=== PATIENT | female | born 1980 | race Two or more races ===

== ENCOUNTER 2016-10-06 07:07 | Emergency (ER) | payer OTHER ==
[~2016-10-06] VITALS: Ht 160 cm; Wt 99.4 kg
[~2016-10-06 07:07] MED LIST: BACTRIM,SEPT1 TABLET PO; LEVOFLOXACIN500 MG PO; MIRENA52 MG IY; PREDNISONE20 MG PO; VENTOLIN HFA18 GM IH
[2016-10-06 07:54] LABS: HEMATOCRIT 34.2 % (36.0-46.0); MCH 28.6 PG (29.0-34.0); MCHC 34.5 G/DL (30.0-36.0); PLATELET COUNT 354 K/uL (156-360); RBC DIS.WIDTH-SD 36.7 % (39-53); RED BLOOD COUNT 4.12 M/uL (3.80-5.20); WHITE BLOOD COUNT 10.7 K/uL (4.1-10.2)
[2016-10-06 08:05] LABS: CHLORIDE 108 mEq/L (99-109); POTASSIUM 3.4 mEq/L (3.7-5.4); SODIUM 137 mEq/L (136-147)
[2016-10-06 08:07] LABS: GLUCOSE 85 mg/dL (70-99)
[2016-10-06 08:08] LABS: ANION GAP 8 MEQ/L (2-14)
[2016-10-06 08:09] LABS: TOTAL BILIRUBIN 0.2 mg/dL (0.0-1.0)
[2016-10-06 08:11] LABS: ALKALINE PHOSPHATASE 60 IU/L (3-129); GFR ESTIMATE (CALCULATED) > 59 mL/min/
[2016-10-06 08:12] LABS: UREA NITROGEN (BUN) 8 mg/dL (9-23)
[2016-10-06 10:32] LABS: ADD MIUA? YES; BILIRUBIN NEGATIVE; BLOOD MODERATE; COLOR YELLOW ((YELLOW)); GLUCOSE (STRIP) NEGATIVE; KETONES NEGATIVE; LEUKOCYTES NEGATIVE; NITRITE NEGATIVE; PROTEIN (STRIP) NEGATIVE; SPECIFIC GRAVITY 1.021 (1.000-1.030); UROBILINOGEN 0.2 MG/DL (0.2-1.0)
[2016-10-06 10:36] LABS: BACTERIA RARE /HPF; EPITHELIAL CELLS RARE /HPF; GRANULAR CASTS 0-5 /LPF; MUCUS TRACE /LPF; RED BLOOD CELLS TNTC /HPF (0-5); WHITE BLOOD CELLS 0-5 /HPF (0-5)
[2016-10-06 11:25] VITALS: BP 144/89
== END 2016-10-06 11:29 | disposition home or self-care (01) ==
LOC: EME 07:07
PROVIDERS: Nurse Practitioner Family
DX: O20.0 Threatened abortion (principal); Z3A.11 11 weeks gestation of pregnancy
CPT/HCPCS: 76801; 80053; 81003; 84702; 85027; 99281; 99285; J7030

== ENCOUNTER 2017-02-22 21:08 | Inpatient (IN) | payer OTHER ==
[~2017-02-22] VITALS: Ht 160 cm; Wt 103.0 kg
[2017-02-22 21:35] VITALS: BP 118/61
[2017-02-22] MEDS ORDERED: PRENATAL TABLE1 EAC3 PO (21:54)
[2017-02-23] VITALS (17 sets, daily range): BP systolic 111–139; BP diastolic 56–93
[2017-02-23 00:23] LABS: ADD MIUA? NO; BILIRUBIN NEGATIVE; BLOOD NEGATIVE; COLOR YELLOW ((YELLOW)); GLUCOSE (STRIP) NEGATIVE; KETONES NEGATIVE; LEUKOCYTES NEGATIVE; NITRITE NEGATIVE; PROTEIN (STRIP) NEGATIVE; SPECIFIC GRAVITY 1.015 (1.000-1.030); UCUL ADDED? NO; UROBILINOGEN 0.2 MG/DL (0.2-1.0)
[2017-02-23 00:28] LABS: EOSINOPHIL (%) 2.2 % (0-5); EOSINOPHIL COUNT 0.2 K/uL (0-0.3); HEMATOCRIT 31.8 % (36.0-46.0); IMMATURE GRANULOCYTE (%) 1.1 % (0.0-0.7); IMMATURE GRANULOCYTE COUNT 0.1 K/uL; INSTRUMENT ABS NEUTROPHIL CT 7.2 K/uL; LYMPHOCYTE COUNT 2.4 K/uL (1.0-2.8); MCH 28.2 PG (29.0-34.0); MCHC 33.3 G/DL (30.0-36.0); MCV 84.6 FL (83-99); MEAN PLAT.VOLUME 9.8 uM^3 (9.5-12.4); MONOCYTE COUNT 0.8 K/uL (0-0.8); NEUTROPHIL (%) 67.2 % (45-76); NEUTROPHIL COUNT 7.2 K/uL (1.8-6.4); PLATELET COUNT 198 K/uL (156-360); RBC DIS.WIDTH-CV 13.2 % (11.8-14.6); RBC DIS.WIDTH-SD 40.6 % (39-53); RED BLOOD COUNT 3.76 M/uL (3.80-5.20); WHITE BLOOD COUNT 10.7 K/uL (4.1-10.2)
[2017-02-23 00:33] LABS: AMPHETAMINE NEGATIVE (500 ng/mL); BARBITURATES NEGATIVE (200 ng/mL); BENZODIAZEPINES NEGATIVE (150 ng/mL); COCAINE NEGATIVE (150 ng/mL); METHADONE NEGATIVE (200 ng/mL); METHAMPHETAMINE NEGATIVE (500 ng/mL); OPIATES (MORPHINE) NEGATIVE (100 ng/mL); OXYCODONE NEGATIVE (100 ng/mL); PHENCYCLIDINE NEGATIVE (25 ng/mL); PROPOXYPHENE NEGATIVE (300 ng/mL); THC CANNABINOIDS NEGATIVE (50 ng/mL); TRICYCLIC ANTIDEPRESSANTS NEGATIVE (300 ng/mL)
[2017-02-23 00:34] LABS: INTERNAL CONTROLS VALID? YES
[2017-02-23 01:01] LABS: PROBE CHECK PASS
[2017-02-23 02:45] LABS: CANDIDA DNA PROBE NEGATIVE; GARDNERELLA DNA PROBE NEGATIVE; INTERNAL CONTROL VALID? YES
[2017-02-24 03:12] VITALS: BP 112/61
[2017-02-24 07:21] VITALS: BP 128/68
[2017-02-24 11:10] VITALS: BP 122/67
[2017-02-24 13:40] LABS: CHLAMYDIA TRACHOMATIS NEGATIVE; NEISSERIA GONORRHOEAE NEGATIVE
[2017-02-24 15:29] VITALS: BP 129/60
[2017-02-24 19:34] VITALS: BP 121/60
[2017-02-24 22:31] VITALS: BP 127/60
[2017-02-25 02:42] VITALS: BP 121/69
[2017-02-25 07:26] VITALS: BP 124/57
[2017-02-25 11:36] VITALS: BP 129/64
[2017-02-25 16:08] VITALS: BP 125/66
[2017-02-25 19:00] VITALS: BP 117/58
[2017-02-25 23:00] VITALS: BP 115/63
[2017-02-26 02:59] VITALS: BP 119/70
[2017-02-26 07:13] LABS: EOSINOPHIL (%) 0.7 % (0-5); EOSINOPHIL COUNT 0.1 K/uL (0-0.3); HEMATOCRIT 30.7 % (36.0-46.0); IMMATURE GRANULOCYTE (%) 3.2 % (0.0-0.7); IMMATURE GRANULOCYTE COUNT 0.3 K/uL; MCHC 32.2 G/DL (30.0-36.0); MCV 86.7 FL (83-99); MEAN PLAT.VOLUME 9.6 uM^3 (9.5-12.4); MONOCYTE (%) 9.8 % (3-12); NEUTROPHIL (%) 66.8 % (45-76); PLATELET COUNT 245 K/uL (156-360); RBC DIS.WIDTH-CV 13.5 % (11.8-14.6); RBC DIS.WIDTH-SD 42.3 % (39-53); RED BLOOD COUNT 3.54 M/uL (3.80-5.20); WHITE BLOOD COUNT 10.5 K/uL (4.1-10.2)
[2017-02-26 07:56] VITALS: BP 129/61
[2017-02-26 10:50] VITALS: BP 116/60
[2017-02-26 16:16] VITALS: BP 125/60
[2017-02-27 07:31] VITALS: BP 102/58
[2017-02-27 12:16] VITALS: BP 117/55
[2017-02-27 15:55] VITALS: BP 124/60
[2017-02-27 19:42] VITALS: BP 122/62
[2017-02-27 22:12] VITALS: BP 125/65
[2017-02-28] VITALS (7 sets, daily range): BP systolic 120–145; BP diastolic 56–80
[2017-03-01] VITALS (7 sets, daily range): BP systolic 112–133; BP diastolic 55–77
[2017-03-01 06:40] LABS: EOSINOPHIL (%) 2.7 % (0-5); EOSINOPHIL COUNT 0.3 K/uL (0-0.3); HEMATOCRIT 31.2 % (36.0-46.0); IMMATURE GRANULOCYTE (%) 3.6 % (0.0-0.7); IMMATURE GRANULOCYTE COUNT 0.4 K/uL; INSTRUMENT ABS NEUTROPHIL CT 8.8 K/uL; LYMPHOCYTE COUNT 1.6 K/uL (1.0-2.8); MCH 28.1 PG (29.0-34.0); MCV 85.2 FL (83-99); MEAN PLAT.VOLUME 9.4 uM^3 (9.5-12.4); MONOCYTE (%) 7.5 % (3-12); MONOCYTE COUNT 0.9 K/uL (0-0.8); NEUTROPHIL (%) 72.9 % (45-76); NEUTROPHIL COUNT 8.8 K/uL (1.8-6.4); PLATELET COUNT 227 K/uL (156-360); RBC DIS.WIDTH-CV 13.7 % (11.8-14.6); RBC DIS.WIDTH-SD 42.5 % (39-53); RED BLOOD COUNT 3.66 M/uL (3.80-5.20); WHITE BLOOD COUNT 12.1 K/uL (4.1-10.2)
[2017-03-02 03:54] VITALS: BP 116/63
[2017-03-02 07:31] VITALS: BP 108/57
[2017-03-02 11:39] VITALS: BP 136/67
[2017-03-02 15:28] VITALS: BP 124/68
[2017-03-02 18:52] VITALS: BP 126/61
[2017-03-02 23:09] VITALS: BP 119/61
[2017-03-03] VITALS (14 sets, daily range): BP systolic 106–130; BP diastolic 58–80
[2017-03-03 09:29] LABS: EOSINOPHIL (%) 3.3 % (0-5); EOSINOPHIL COUNT 0.3 K/uL (0-0.3); HEMATOCRIT 32.4 % (36.0-46.0); IMMATURE GRANULOCYTE (%) 2.5 % (0.0-0.7); IMMATURE GRANULOCYTE COUNT 0.3 K/uL; INSTRUMENT ABS NEUTROPHIL CT 6.8 K/uL; LYMPHOCYTE COUNT 1.9 K/uL (1.0-2.8); MCH 27.9 PG (29.0-34.0); MCHC 32.1 G/DL (30.0-36.0); MCV 86.9 FL (83-99); MEAN PLAT.VOLUME 9.5 uM^3 (9.5-12.4); MONOCYTE (%) 6.2 % (3-12); MONOCYTE COUNT 0.6 K/uL (0-0.8); NEUTROPHIL (%) 68.3 % (45-76); NEUTROPHIL COUNT 6.8 K/uL (1.8-6.4); PLATELET COUNT 263 K/uL (156-360); RBC DIS.WIDTH-CV 14.1 % (11.8-14.6); RBC DIS.WIDTH-SD 44.2 % (39-53); RED BLOOD COUNT 3.73 M/uL (3.80-5.20); WHITE BLOOD COUNT 9.9 K/uL (4.1-10.2)
[2017-03-04] VITALS (17 sets, daily range): BP systolic 106–136; BP diastolic 56–77
[2017-03-04 07:07] LABS: EOSINOPHIL (%) 2.2 % (0-5); EOSINOPHIL COUNT 0.2 K/uL (0-0.3); IMMATURE GRANULOCYTE (%) 1.8 % (0.0-0.7); IMMATURE GRANULOCYTE COUNT 0.2 K/uL; INSTRUMENT ABS NEUTROPHIL CT 7.7 K/uL; MCH 28.4 PG (29.0-34.0); MCHC 33.1 G/DL (30.0-36.0); MCV 85.8 FL (83-99); MEAN PLAT.VOLUME 9.3 uM^3 (9.5-12.4); MONOCYTE (%) 7.1 % (3-12); MONOCYTE COUNT 0.8 K/uL (0-0.8); NEUTROPHIL (%) 70.1 % (45-76); NEUTROPHIL COUNT 7.7 K/uL (1.8-6.4); PLATELET COUNT 246 K/uL (156-360); RBC DIS.WIDTH-CV 13.7 % (11.8-14.6); RBC DIS.WIDTH-SD 42.5 % (39-53); RED BLOOD COUNT 3.73 M/uL (3.80-5.20)
[2017-03-05 03:19] VITALS: BP 125/66
[2017-03-05 07:07] LABS: EOSINOPHIL (%) 1.1 % (0-5); EOSINOPHIL COUNT 0.1 K/uL (0-0.3); HEMATOCRIT 26.3 % (36.0-46.0); IMMATURE GRANULOCYTE (%) 1.5 % (0.0-0.7); IMMATURE GRANULOCYTE COUNT 0.2 K/uL; LYMPHOCYTE COUNT 2.9 K/uL (1.0-2.8); MCH 28.1 PG (29.0-34.0); MCHC 32.3 G/DL (30.0-36.0); MCV 86.8 FL (83-99); MEAN PLAT.VOLUME 9.5 uM^3 (9.5-12.4); MONOCYTE (%) 8.4 % (3-12); PLATELET COUNT 226 K/uL (156-360); RBC DIS.WIDTH-CV 13.8 % (11.8-14.6); RBC DIS.WIDTH-SD 42.5 % (39-53); RED BLOOD COUNT 3.03 M/uL (3.80-5.20); WHITE BLOOD COUNT 12.3 K/uL (4.1-10.2)
[2017-03-05 07:10] VITALS: BP 100/58
[2017-03-05 15:00] VITALS: BP 123/56
[2017-03-05 19:36] VITALS: BP 122/62
[2017-03-05 23:55] VITALS: BP 132/74
[2017-03-06 03:07] VITALS: BP 118/57
[2017-03-06] MEDS ORDERED: CHROMAGEN,1 CAPSULE PO (09:51)
[2017-03-06] MEDS ORDERED: IBUPROFEN800 MG PO (09:51)
[2017-03-06] MEDS ORDERED: ENDOCET 5-3251 EACH PO (09:51)
== END 2017-03-06 15:19 | disposition home or self-care (01) | DRG 765 ==
LOC: LDRP-OP 21:08 → EDSTATUS 21:10 → 2WEST 21:11
PROVIDERS: Advanced Practice Midwife; Obstetrics & Gynecology
PROC: 3E0P3VZ Introduction of Hormone into Female Reproductive, Percutaneous Approach (ICD-10-PCS; principal; 2017-02-26)
PROC: 10D00Z1 Extraction of Products of Conception, Low, Open Approach (ICD-10-PCS; 2017-03-04)
PROC: 00HU33Z Insertion of Infusion Device into Spinal Canal, Percutaneous Approach (ICD-10-PCS; 2017-03-04)
PROC: 3E0S3NZ Introduction of Analgesics, Hypnotics, Sedatives into Epidural Space, Percutaneous Approach (ICD-10-PCS; 2017-03-04)
DX: O42.913 Preterm premature rupture of membranes, unspecified as to length of time between rupture and onset of labor, third trimester (principal); O60.14X0 Preterm labor third trimester with preterm delivery third trimester, not applicable or unspecified; D62 Acute posthemorrhagic anemia; Z3A.34 34 weeks gestation of pregnancy; O61.9 Failed induction of labor, unspecified; O99.824 Streptococcus B carrier state complicating childbirth; O99.02 Anemia complicating childbirth; D50.9 Iron deficiency anemia, unspecified; Z37.0 Single live birth; O32.0XX0 Maternal care for unstable lie, not applicable or unspecified; O32.6XX0 Maternal care for compound presentation, not applicable or unspecified
CPT/HCPCS: 76805; 76818; 81003; 85025; 86850; 86900; 86901; 87077; 87081; 87086; 87186; 87480; 87491; 87510; 87591; 87653; 87660; C1755; G0378; J0290; J0456; J0690; J0702; J1100; J1885; J2274; J2405; J2540; J3010; J3475; J7050; J7120